=== PATIENT | male | born 1955 | race Caucasian/White ===

== ENCOUNTER 2023-02-09 15:09 | Emergency (ER) | payer MEDICARE, BC ==
[2023-02-09] MEDS ORDERED: methylPREDNISolone Sodium Succinate 125 MG/2 ML SDV IVPUSH ONE (15:13)
[2023-02-09] MEDS ORDERED: diphenhydrAMINE 50 MG/ML SDV IVPUSH ONE (15:13)
[2023-02-09] MEDS ORDERED: EPINEPHrine 1 MG/ML SDV SUBCUT ONE (15:13)
== END 2023-02-09 17:39 | disposition home or self-care (01) ==
LOC: JP.ED 15:09
DX: T63.441A Toxic effect of venom of bees, accidental (unintentional), initial encounter (principal); Z91.030 Bee allergy status; Z88.0 Allergy status to penicillin
CPT/HCPCS: 96372; 96374; 96375; 99282; J0171; J1200; J2930